=== PATIENT | female | born 1975 | race Caucasian/White ===

== ENCOUNTER 2017-11-16 12:34 | Outpatient (CLI) | payer OTHER | END 2017-11-16 12:59 | disposition home or self-care (01) | LOC: SONOGRAMA 12:34 | DX: N63.11 Unspecified lump in the right breast, upper outer quadrant (principal) ==

== ENCOUNTER 2018-12-24 07:00 | Day surgery (SDC) | payer OTHER ==
[~2018-12-24 07:00] MED LIST: TYLENOL ARTHRI650 MG PO
== END 2018-12-24 13:15 | disposition home or self-care (01) ==
LOC: CIR.AMB 07:00
DX: D24.1 Benign neoplasm of right breast (principal)